=== PATIENT | male | born 1955 | race Caucasian/White ===

== ENCOUNTER 2017-08-04 09:39 | Observation (INO) | payer BC ==
[~2017-08-04] VITALS: Ht 182.9 cm; Wt 131.4 kg
[~2017-08-04 09:39] MED LIST: KEFLEX500 MG PO; PERCOCET 5/31 TABLET PO
[2017-08-04 10:36] LABS: HEMOGLOBIN 16.4 G/DL (12.5-16.6); MCH 30.9 PG (29.0-34.0); MCHC 34.9 G/DL (30.0-36.0); MCV 88.5 FL (86-99); PLATELET COUNT 172 K/uL (156-360); RBC DIS.WIDTH-CV 12.2 % (11.8-14.6); RBC DIS.WIDTH-SD 39.8 % (39-53); RED BLOOD COUNT 5.31 M/uL (4.00-5.50); WHITE BLOOD COUNT 7.1 K/uL (4.1-10.2)
[2017-08-04 10:49] LABS: CHLORIDE 105 mEq/L (99-109)
[2017-08-04 10:50] LABS: POTASSIUM 4.4 mEq/L (3.7-5.4); SODIUM 137 mEq/L (136-147)
[2017-08-04 10:51] LABS: GLUCOSE 177 mg/dL (70-99)
[2017-08-04 10:55] LABS: CREATININE 0.9 mg/dL (0.6-1.3); GFR ESTIMATE (CALCULATED) > 59 mL/min/ (58.99-99999)
[2017-08-04 10:56] LABS: UREA NITROGEN (BUN) 21 mg/dL (9-23)
[2017-08-04 10:57] LABS: TROP-I INTERPRETATION NEGATIVE; TROPONIN-I 0.02 ng/mL (0.0-0.30)
[2017-08-04 11:32] LABS: ALBUMIN 4.1 g/dL (3.2-4.8)
[2017-08-04 11:34] LABS: TOTAL PROTEIN 6.6 g/dL (6.4-8.3)
[2017-08-04 11:36] LABS: TOTAL BILIRUBIN 0.7 mg/dL (0.0-1.0)
[2017-08-04 11:37] LABS: ALKALINE PHOSPHATASE 77 IU/L (3-129)
[2017-08-04 11:40] LABS: ALT (GPT) 23 IU/L (3-49); AST (GOT) 15 IU/L (2-34); DIRECT BILIRUBIN 0.2 mg/dL (0.0-0.3)
[2017-08-04] MEDS ORDERED: METFORMIN HCL1000 MG PO (11:49)
[2017-08-04] MEDS ORDERED: MOBIC7.5 MG PO (11:50)
[2017-08-04] MEDS ORDERED: DIABETA2.5 MG PO (11:50)
[2017-08-04 11:56] LABS: PTT 26.9 SEC (25-37)
[2017-08-04] MEDS ORDERED: BP MED PO (11:59)
[2017-08-04 12:06] LABS: TROP-I INTERPRETATION NEGATIVE; TROPONIN-I 0.02 ng/mL (0.0-0.30)
[2017-08-04 15:02] LABS: THYROTROPIN (TSH) 3.1 MIU/L (0.4-5.5)
[2017-08-04 17:29] VITALS: BP 156/91
[2017-08-04 18:30] LABS: TROP-I INTERPRETATION NEGATIVE; TROPONIN-I 0.02 ng/mL (0.0-0.30)
[2017-08-04 20:00] VITALS: BP 166/78
[2017-08-04 23:54] VITALS: BP 182/85
[2017-08-05 01:08] LABS: TROP-I INTERPRETATION NEGATIVE; TROPONIN-I 0.02 ng/mL (0.0-0.30)
[2017-08-05 04:23] VITALS: BP 136/83
[2017-08-05] MEDS ORDERED: ELIQUIS5 MG PO (10:23)
[2017-08-05] MEDS ORDERED: CARDIZEM CD,CA180 MG PO (11:14)
[2017-08-05 11:22] VITALS: BP 132/86
[2017-08-05] MEDS ORDERED: CARDIZEM CD360 MG PO (11:25)
[2017-08-05 15:36] VITALS: BP 144/86
== END 2017-08-05 17:06 | disposition home or self-care (01) ==
LOC: EME 09:39 → 5WEST 11:28 → EDOF 11:28 → ENRESERV 11:30 → 5WEST 17:14
PROVIDERS: Internal Medicine; Nurse Practitioner Family; Physician Assistant
DX: I48.91 Unspecified atrial fibrillation (principal); I10 Essential (primary) hypertension; E11.9 Type 2 diabetes mellitus without complications; Z79.84 Long term (current) use of oral hypoglycemic drugs; E66.01 Morbid (severe) obesity due to excess calories; Z68.39 Body mass index [BMI] 39.0-39.9, adult; E78.5 Hyperlipidemia, unspecified; Z86.718 Personal history of other venous thrombosis and embolism
CPT/HCPCS: 71046; 80048; 80076; 82948; 84443; 84484; 85027; 85610; 85730; 93005; 93306; 99281; 99285; G0378; J0360; J1650; J7030